=== PATIENT | female | born 1975 | race Hispanic/Latino ===

== ENCOUNTER 2019-12-03 06:01 | Observation (INO) | payer OTHER ==
[2019-11-29 13:16] LABS: Basophils # (Auto) 0.2 K/mm3 (0.0-0.1); Basophils % (Auto) 1.5 % (0.0-1.8); Eosinophils # (Auto) 0.2 K/mm3 (0.0-0.4); Eosinophils % (Auto) 1.3 % (0.0-4.3); Hemoglobin 13.1 gm/dl (10.1-14.3); Lymphocytes # (Auto) 3.1 K/mm3 (1.2-5.4); Lymphocytes % (Auto) 23.5 % (13.4-35.0); Mean Corpuscular HGB Conc 32 % (30-34); Mean Corpuscular Volume 83 fl (79-97); Monocytes # (Auto) 0.9 K/mm3 (0.0-0.8); Monocytes % (Auto) 6.6 % (0.0-7.3); Platelet Count 435 K/mm3 (140-440); Red Blood Count 4.93 M/mm3 (3.65-5.03); Red Cell Distribution Width 14.5 % (13.2-15.2)
--- NOTE | 2019-11-29 13:28 | Anesthesia Consultation ---
Anesthesia Consult and Med Hx Date of service: 12/03/19 - Airway Anesthetic Teeth Evaluation: Good ROM Head & Neck: Adequate (S/P ACDF-decreased lateral; good extension) Mental/Hyoid Distance: Adequate Mallampati Class: Class II Intubation Access Assessment: Good - Pre-Operative Health Status ASA Pre-Surgery Classification: ASA2 Proposed Anesthetic Plan: General Nerve Block: TAP - Pulmonary Hx Asthma: Yes (As a child) Hx Respiratory Symptoms: No (States she can climb two flights of stairs) - Cardiovascular System Hx Hypertension: No Hx Peripheral Vascular Disease: Yes (Diuretics because her legs swell) - Central Nervous System Hx Neuromuscular Disorder: Yes (Migraines) Hx Back Pain: Yes (Occas. Scoliosis. S/P LL) Hx Psychiatric Problems: No - Gastrointestinal Hx Gastroesophageal Reflux Disease: Yes (Occasional) - Endocrine Hx Hypothyroidism: Yes - Hematic Hx Anemia: Yes (Intermittant) - Other Systems Hx Cancer: No Hx Obesity: Yes - Additional Comments Anesthesia Medical History Comments: +Medical clearance
[2019-11-29 13:30] LABS: BUN/Creatinine Ratio 18; Blood Urea Nitrogen 14 mg/dL (7-17); Hemolysis Index 23
--- NOTE | 2019-12-02 17:38 | History and Physical Report ---
History of Present Illness Date of examination: 11/29/19 Chief complaint: Menorrhagia and pelvic pain History of present illness: Patient Profile: 44 Years Old Female LMP: 11/02/2019 Height: 69 inches (175.26 cm) Weight: 240 pounds BMI: 35.44 BP sittin / 72 (left arm) Menstrual History: LMP (date): 11/02/2019 Current Method of Contraception: None Date of Last Mammogram: 05/21/2019 Date of Last Pap Smear: 07/29/2019 Past History : 3 Term Births: 2 Premature Births: 0 Living Children: 2 Para: 2 Mult. Births: 0 Prev : 0 Aborta: 0 Elect. Ab: 0 Spont. Ab: 1 Ectopics: 0 # 1 Delivery date: 03/30/2007 Weeks Gestation: FT Delivery type: Infant Sex: Male weight: 7-5 Comments: lap ember during # 2 Delivery date: 12/2009 Weeks Gestation: ~6-7wks Delivery type: SAB Comments: no D&C # 3 Delivery date: 11/02/2010 Weeks Gestation: 38+5 Delivery type: Vaginal Anesthesia type: epidural Delivery location: [facility] Sex: male weight: 8.44 BUSINESS INTER[employer] History Uterine Surgery (not C/S): negative Operations: positive Cholecystectomy oral laminectomy lumbar 2000 cervical fusion (2013) Hospitalizations: negative Anesthesia Complications: negative Abnormal PAP: negative Uterine Anomaly: negative JENNIFER Exposure: negative Infertility: negative Infection History HIV Risk Eval: no Hep B Immunized: yes TB exposure: no Personal hx. of genital herpes: no Partner hx. of genital herpes: no Rash/viral illness since LMP: no Hx of STD: none Active Medications (reviewed today): TRICOR 145 MG ORAL TABLET (FENOFIBRATE) ARMOUR THYROID 90 MG ORAL TABLET (THYROID) LEVOTHYROXINE SODIUM 50 MCG ORAL TABLET (LEVOTHYROXINE SODIUM) Current Allergies (reviewed today): XYZAL (Critical) Past Medical History: Reviewed history from 08/19/2019 and no changes required: Hasimoto's thyroiditis Hyperlipidemia Past Surgical History: Reviewed history from 07/29/2019 and no changes required: positive Cholecystectomy oral laminectomy lumbar 2000 cervical fusion (2013) Family History Summary: Reviewed history Last on 07/29/2019 and no changes required:12/02/2019 MGM - Has Family History of Ovarian Cancer - MGGM - Entered On: 08/19/2019 Other Family Member - Has No Family History of Uterine Cancer - Entered On: 07/29/2019 Other Family Member - Has No Family History of Small Bowel Cancer - Entered On: 07/29/2019 Other Family Member - Has No Family History of Pancreatic Cancer - Entered On: 07/29/2019 Other Family Member - Has No Family History of Kidney/Urinary Tract Cancer - Entered On: 07/29/2019 Other Family Member - Has No Family History of Spontaneous DVT-PE - Entered On: 07/29/2019 Other Family Member - Has No Family History of Brain Cancer - Entered On: 07/29/2019 Other Family Member - Has No Family History of Biliary Tract Cancer - Entered On: 07/29/2019 MGM - Has Family History of Stomach Cancer - MGGM - Entered On: 07/29/2019 MGF - Has Family History of Stomach Cancer - Entered On: 07/29/2019 MGM - Has Family History of Skin Cancer - Entered On: 06/25/2015 MGF - Has Family History of Skin Cancer - Entered On: 06/25/2015 Mother - Has Family History of Skin Cancer - Entered On: 06/25/2015 Father - Has Family History of Skin Cancer - Entered On: 06/25/2015 Other Family Member - Has No Family History of Colon Cancer - Entered On: 06/25/2015 Aunt - Has Family History of Ovarian Cancer - paternal great aunt - Entered On: 06/25/2015 Cousin (female) - Has Family History Breast Cancer - age 39 - Entered On: 06/25/2015 General Comments - FH: Mother - heart surgery, arrhtymia ablation. also cad with stents MGF/MGGM stomach cancer No Family History of Colon Cancer Social History: Reviewed history from 07/29/2019 and no changes required: Patient is , no etoh, no illicit drug use, no tobacco use Occupation: RN Smoking History: Patient has never smoked. Risk Factors: Smoked Tobacco Use: Never smoker Smokeless Tobacco Use: Never Passive smoke exposure: no Drug use: no HIV high-risk behavior: no Alcohol use: yes Exercise: yes Seatbelt use: 100 % Mammogram History: Date of Last Mammogram: 05/21/2019 PAP Smear History: Date of Last PAP Smear: 07/29/2019 Previous Tobacco Use: Signed On - 08/19/2019 Smoked Tobacco Use: Never smoker Smokeless Tobacco Use: Never Counseled to quit/cut down: yes Passive smoke exposure: no Drug use: no HIV high-risk behavior: no Caffeine use: 1 drinks per day Previous Alcohol Use: Signed On - 08/19/2019 Alcohol use: yes Drinks per day: social Exercise: yes Times per week: 4 Type of Exercise: Walk Seatbelt use: 100 % Dietary Counseling: pn yes Mammogram History: Date of Last Mammogram: 05/21/2019 PAP Smear History: Date of Last PAP Smear: 07/29/2019 Physical Exam Appearance: well developed, well nourished, no acute distress Other Exams Lungs: no rales, rhonchi, or wheezes Heart: S1, S2, no murmur, rub, or gallop Genitourinary Exam Uterus: deffered for EUA Impression & Recommendations: Problem # 1: Excessive and frequent menstruation with irregular cycle (ICD- 626.6) ([id number]-G39.1) Diagnosis explained to patient . Discussed with patient various medical, surgical and radiological therapies common for treatment including, but not limited to, myomectomy, hysterectomy and uterine artery embolization. Discussed risks and benefits of laparotomy, laparoscopy, vaginal and robotic assisted approaches for hysterectomies. Patient desires definitive treatment in the form of robot assisted laparoscopic total hysterectomy. The risks and alternatives for this surgery were reviewed with the patient. She was informed of the risks of the surgery including, but not limited to, pain, infection, bleeding possibly heavy enough to require a blood transfusion with associated risks of infections (hepatitis and HIV) and transfusion reactions, possible damage to bowel, bladder or ureter(s). Patient understands that this surgery with make her sterile. Indications to abort a robotic/laparoscopic procedure and perform an open procedure were explained. Patient understands if her ovaries are removed she will become menopausal. She desires ovarina conservation. She was informed she may require surgery later to have her ovaries removed for a benign or mailgnant condition.Patient advised the small risks of spreading of maladiel yanet if morcellation is required during the surgery patient understands and approves performing if necessary. Questions answered. Consent reviewed and signed The patient was instructed/informed the following: The normal length of hospital stay for this procedure. Nothing to eat or drink after midnight the evening prior to surgery. Clear liquids the day before surgery. Pre-op instruction sheets given. Wound care instructions given. Problem # 2: Pelvic and perineal pain (ICD-789.00) (VGR44-T68.2) Risks, benefits, complications, consequences and alternatives for these procedures were discussed with patient, including but not limited to the risks of bleeding, infection, injury to bowel, bladder, ureters or major vascular injury. It was extensively explained to her that her pain may persist, recur or change in nature due to the difficulty with diagnosis chronic pelvic pain or development of adhesions. She declined other treatment options at this time. Questions were encouraged and answered. Consents were reviewed and signed. Pre- op as well as post-op instructions and precautions were given.. Patient voiced understanding and desires to proceed with the above procedures Medications Added to Medication List This Visit: 1) Tricor 145 Mg Oral Tablet (Fenofibrate) 2) [place] Thyroid 90 Mg Oral Tablet (Thyroid) 3) Levothyroxine Sodium 50 Mcg Oral Tablet (Levothyroxine sodium) Medications and Allergies Allergies Allergy/AdvReac Type Severity Reaction Status Date / Time levocetirizine [From Xyzal] Allergy Angioedema Verified 11/20/19 14:49 Home Medications Medication Instructions Recorded Confirmed Last Taken Type Fenofibrate Nanocrystallized 145 mg PO DAILY 11/20/19 11/20/19 Unknown History [Fenofibrate] Levothyroxine [Synthroid] 50 mcg PO QAM 11/20/19 11/20/19 Unknown History Thyroid,Pork [Thyroid] 90 mg PO DAILY 11/20/19 11/20/19 Unknown History Triamter/Hctz 75-50 mg (Nf) 1 tab PO QDAY PRN 11/20/19 11/20/19 Unknown History [Maxzide 75-50 mg] Vitamin D (Nf) 10,000 unit PO DAILY 11/20/19 11/20/19 Unknown History Active Meds: Active Medications Celecoxib (Celebrex) 200 mg PO PREOP NR Stop: 12/03/19 16:00 Fentanyl (Sublimaze) 100 mcg IV ONCE PRN PRN Reason: sedation for nerve block Stop: 12/03/19 16:00 Gabapentin (Gabapentin) 600 mg PO PREOP NR Stop: 12/03/19 16:00 Lactated Ringer's (Lactated Ringers) 1,000 mls @ 100 mls/hr IV DIRECT RAÚL Cefazolin Sodium (Ancef/Sterile Water 2 Gm/20 Ml) 2 gm in 20 mls @ 80 mls/hr IV PREOP NR; Protocol Magnesium Oxide (Mag-Ox) 400 mg PO PREOP RAÚL Midazolam HCl (Versed) 2 mg IV PREOP NR Stop: 12/03/19 16:00 Exam Vital Signs Temp Pulse Resp BP Pulse Ox 97.5 F L 92 H 20 150/70 98 11/29/19 13:09 11/29/19 13:09 11/29/19 13:09 11/29/19 13:09 11/29/19 13:09 Results - Labs 11/29/19 12:50 11/29/19 12:50 Assessment and Plan - Patient Problems (1) Menorrhagia Status: Acute Qualifiers: Menorrhagia type: with regular cycle Qualified Code(s): N92.0 - Excessive and frequent menstruation with regular cycle (2) Pelvic pain Status: Chronic
[~2019-12-03 06:01] MED LIST: CELECOXIB 200 MG CAP PO NR; GABAPENTIN 300 MG CAP PO NR; LACTATED RINGERS 1,000 ML IV SCH; MAGNESIUM OXIDE 400 MG TAB PO SCH; MIDAZOLAM 2 MG/2 ML INJ IV NR; ceFAZolin/Water 2 GM/20 ML 2 GM/20 ML SYRINGE IV NR; fentaNYL 100 MCG/2 ML INJ IV PRN
[2019-12-03] MEDS ORDERED: BACTERIOSTATIC SODIUM CHLORIDE 0.9% 30 ML VIAL INFILTRATI ONE (06:31)
[2019-12-03] MEDS ORDERED: MIDAZOLAM 2 MG/2 ML INJ ONE (07:11)
[2019-12-03] MEDS ORDERED: fentaNYL 100 MCG/2 ML INJ ONE (07:11)
[2019-12-03] MEDS ORDERED: ONDANSETRON 4 MG/2 ML INJ ONE (07:11)
[2019-12-03] MEDS ORDERED: ROCURONIUM 50 MG/5 ML INJ IV ONE (07:11)
[2019-12-03] MEDS ORDERED: dexAMETHasone 20 MG/5 ML VIAL ONE (07:11)
[2019-12-03] MEDS ORDERED: propofoL 200 MG/20 ML VIAL IV ONE (07:11)
[2019-12-03] MEDS ORDERED: METOCLOPRAMIDE 10 MG/2 ML INJ ONE (07:11)
[2019-12-03] MEDS ORDERED: LIDOCAINE MPF (2%) 20 MG/1 ML VIAL 5 ML ONE (07:11)
[2019-12-03] MEDS ORDERED: GLYCOPYRROLATE 0.4 MG/2 ML INJ ONE (07:12)
[2019-12-03] MEDS ORDERED: NEOSTIGMINE 10MG/10 ML INJ MDV ONE (07:12)
[2019-12-03] MEDS ORDERED: KETOROLAC 30 MG/1 ML INJ ONE (07:12)
[2019-12-03] MEDS ORDERED: BUPIVACAINE-EPINEPHRINE/PF 0.25%-1:200,000 (30 ML) VIAL INFILTRATI ONE (07:14)
[2019-12-03] MEDS ORDERED: dexAMETHasone 4 MG/ML VIAL ONE (07:14)
[2019-12-03] MEDS ORDERED: CITRIC ACID-SOD CITRATE 0 ML IV ONE (07:31)
[2019-12-03] MEDS ORDERED: CALCIUM CHLORIDE 1,000 MG/10 ML SYRINGE IV ONE ×2 (07:31→09:14)
[2019-12-03] MEDS ORDERED: THROMBIN (RECOMBINANT) 5,000 UNIT VIAL TP ONE ×2 (07:32→09:14)
[2019-12-03] MEDS ORDERED: NEOMY 40 MG/POLYMYXIN B 200,000 UNITS/ML (GU) AMPULE IR ONE ×2 (07:32→09:13)
[2019-12-03] MEDS ORDERED: PHENYLEPHRINE/NS 1,000 MCG/10 ML SYRINGE (OR USE) IV ONE (08:12)
[2019-12-03] MEDS ORDERED: HYDROmorphone 1 MG/1 ML INJ IV PRN (08:29)
--- NOTE | 2019-12-03 08:29 | Anesthesia Day of Surgery ---
Anesthesia Day of Surgery - Day of Surgery Patient Examined: Yes Patient H&P Reviewed: Yes Patient is NPO: Yes
[2019-12-03] MEDS ORDERED: LACTATED RINGERS 1,000 ML ONE ×2 (08:44→09:23)
[2019-12-03] MEDS ORDERED: SODIUM CHLORIDE 0.9% IRRIG SOLN 2000 ML IR ONE (09:13)
[2019-12-03] MEDS ORDERED: MORPHINE 4 MG/1 ML INJ IV PRN (11:33)
[2019-12-03] MEDS ORDERED: METOCLOPRAMIDE 10 MG/2 ML INJ IV PRN (11:33)
[2019-12-03] MEDS ORDERED: METOCLOPRAMIDE 10 MG TAB PO PRN (11:33)
[2019-12-03] MEDS ORDERED: MORPHINE 2 MG/1 ML INJ IV PRN (11:33)
[2019-12-03] MEDS ORDERED: NALOXONE 0.4 MG/1 ML INJ IV PRN (11:33)
--- NOTE | 2019-12-03 11:46 | Operative Report ---
Operative Report Operative Report: Date: 12/03/2019 Preoperative diagnosis: 1. Menorrhagia 2. Pelvic pain 3. Body mass index of [] kg/m 4. [] 5. [] 6. [ ] Postoperative diagnosis: 1. Menorrhagia 2. Pelvic pain 3. Body mass index of [] kg/m 4. Left ovarian cyst 5. Possible endometriosis Procedure: 1. Robotic-assisted laparoscopic total hysterectomy with bilateral salpingectomy 2. Left ovarian cystectomy 3. Ablation of endometriosis Surgeon: Ninoska Zepeda MD Business Banking Representative: Vijaya Lopez CST Anesthesiologist: Dr. Leblanc Anesthesia: General endotracheal anesthesia EBL: Approximately less than 50 mL Findings: EUA: Uterus difficult to palpate due to body habitus. Uterus was sounded to 8 cm. Grossly normal tubes and ovaries. Small implant of what appeared to be endometriosis at the right proximal uterosacral ligament Procedure: Patient was taken to the OR and placed in the supine position. General anesthesia was induced and an oral gastric tube was placed. Her neck and head were placed on foam support. Foam eye protection with goggles were secured in place. Then foam face protection was placed and secured. Foam shoulder pads were then positioned on her shoulders for Trendelenburg positioning. She was then placed in dorsolithotomy position. Exam under anesthesia as above. The abdomen and vagina were then prepped and draped in the usual sterile fashion. Timeout was performed. A Cleaning catheter was inserted into the bladder with drainage of clear yellow urine. The operative speculum was introduced into the vagina and the anterior lip of the cervix was grasped with single-toothed tenaculum. The uterus was sounded to 8 cm. The cervix was progressively dilated to allow the [] V care uterine manipulator. The bulb of the manipulator was inflated and the speculum and tenaculum were removed. The cup of the manipulator was placed around the cervix and the blue occluder of the manipulator was properly positioned in the vagina and secured. A laparotomy sponge that was saturated with a solution of polymyxin and saline was placed in the vagina to ensure pneumoperitoneum. Sterile gloves were placed and attention was turned to the abdomen. A 10 mm midline vertical supraumbilical incision was made approximately 10 cm superior to the elevated fundus of the uterus. A 10-12 mm trocar with the laparoscope and camera attached was introduced through this incision under direct visualization. The abdomen was insufflated. No obvious bowel, bladder, ureteral, or major vascular injury was noted. The patient was then placed in steep Trendelenburg position and the following trochars were placed under direct visualization: 8 mm robotic trochars were placed through incisions made in the bilateral midclavicular lower abdominal region approximately 10 cm lateral to the midline incision, and a 5 mm trocar was placed through an incision made in the right lower lateral pelvis. The 10 mm laparoscope was then replaced by a 5 mm laparoscope that was placed through the 5 millimeter lateral trocar. The 12 mm trocar was then removed and the Cirilo Mullen fascial closure device was placed through the incision and a 0 Vicryl was placed through the fascia. Once the suture was secured the 12 mm trocar was reintroduced. Once the trochars were in the appropriate positions, the da Shawn robot system was engaged. The EndoShears and bipolar device was placed through the 8 mm trochars and positioned then attention was turned to the console. The uterus was elevated and bilateral salpingectomy was performed. Each tube was removed through the 5 mm trocar and sent to pathology in separate containers. Once the posterior c ul-de-sac was visualized a small area of what appeared to be endometriosis was noted. Ablation was performed of this area. Then the utero-ovarian ligaments were clamped. cauterized and incised bilaterally using 30 W of energy. Then the round ligaments were clamped, cauterized and incised bilaterally. The anterior leaf of the broad ligament was elevated and with careful blunt and sharp dissection the bladder flap was created and dissected away from the lower uterine segment and cervix. The posterior leaf of the broad ligament was dissected away from the uterine vessels. The cup of the uterine manipulator was palpated both anteriorly and posteriorly. The bladder was further dissected away from the lower uterine segment. The uterine vessels were then clamped and cauterized bilaterally. Blanching of the uterus was then noted. Attention was again turned to the anterior lower uterine segment and the bladder was confirmed to be away from the operative field. Then attention was turned again to the posterior where the cup of the manipulator was palpated and a colpotomy was performed down to the cup. The incision was extended in the lateral position to the uterine vessels that were again clamped and cauterized and incised. Continuing along the cup of the manipulator in a circumferential manner the colpotomy was completed. The uterus and cervix were then removed through the vaginal incision. The pelvis was irrigated with warm normal saline. A moist laparotomy sponge was placed in the vagina to maintain pneumoperitoneum. The vagina cuff was reapproximated using V LOC 180 suture. Then a J stitch was performed to secure the suture. Again the pelvis was copiously irrigated with polymixin in warm normal saline. The laparotomy sponge was removed from the vagina. No obvious evidence of bowel, bladder, ureteral, or major vascular injury was noted. Once hemostasis was noted, platelet rich plasma was applied to the operative field to ensure hemostasis. Platelet poor plasma was applied to decrease formation of adhesions. Then the instruments were removed, the robot was disengaged. The 12 mm trocar was removed and the fascia was ligated with the 0 Vicryl suture that was placed at the beginning of the procedure. The patient was taken out of Trendelenburg position, the abdomen was desufflated, the remaining trochars were removed. Incisions were reapproximated using 4-0 Monocryl in a subcuticular manner. Surgiseal was placed over the other incisions. The vagina was then inspected, the cuff was palpated to be intact and no bleeding was noted and clear yellow urine was draining into the Cleaning bag from the bladder at the end of the procedure. Counts were correct 3. Patient was taken to recovery room in stable condition.
--- NOTE | 2019-12-03 12:12 | Post Anesthesia Evaluation ---
- Post Anesthesia Evaluation Patient Participated: Yes Airway Patent: Yes Stable Respiratory Function: Yes Nausea/Vomiting: No Temp > 96.8F: Yes Pain Manageable: Yes Adequeate Hydration: Yes Anesthesia Complications: No
[2019-12-03] MEDS: ACETAMINOPHEN 325 MG TAB PO SCH ×2 (13:17→21:25)
[2019-12-03] MEDS: ceFAZolin/NS 1 GM/50 ML 1 GM/50 ML BAG IV SCH ×2 (13:17→21:25)
[2019-12-03] MEDS: LACTATED RINGERS 1,000 ML IV SCH ×2 (13:18→21:30)
[2019-12-03] MEDS: PANTOPRAZOLE 40 MG INJ IV SCH (13:30)
[2019-12-03] MEDS: KETOROLAC 30 MG/1 ML INJ IV SCH (17:31)
--- NOTE | 2019-12-03 20:41 | Progress Note ---
Assessment and Plan Doing well, gonzales adjusted, UO clear, appropriate. No visitors present to assist with ambulation, Will remove gonzales in am. Patient voiced understanding and agrees w/ POC - Patient Problems (1) History of robot-assisted laparoscopic hysterectomy Current Visit: Yes Status: Acute (2) Menorrhagia Current Visit: No Status: Resolved Qualifiers: Menorrhagia type: with regular cycle Qualified Code(s): N92.0 - Excessive and frequent menstruation with regular cycle (3) Pelvic pain Current Visit: No Status: Resolved (4) Ovarian cyst Current Visit: Yes Status: Acute (5) Status post bilateral salpingectomy Current Visit: Yes Status: Acute Subjective - Subjective Date of service: 12/03/19 Principal diagnosis: DOS s/p RALTH, BS w/ (L) ov cyst removal Interval history: Patient Profile: 44 Years Old Female LMP: 11/02/2019 Height: 69 inches (175.26 cm) Weight: 240 pounds BMI: 35.44 BP sittin / 72 (left arm) Menstrual History: LMP (date): 11/02/2019 Current Method of Contraception: None Date of Last Mammogram: 05/21/2019 Date of Last Pap Smear: 07/29/2019 Past History : 3 Term Births: 2 Premature Births: 0 Living Children: 2 Para: 2 Mult. Births: 0 Prev : 0 Aborta: 0 Elect. Ab: 0 Spont. Ab: 1 Ectopics: 0 # 1 Delivery date: 03/30/2007 Weeks Gestation: FT Delivery type: Infant Sex: Male weight: 7-5 Comments: lap ember during # 2 Delivery date: 12/2009 Weeks Gestation: ~6-7wks Delivery type: SAB Comments: no D&C # 3 Delivery date: 11/02/2010 Weeks Gestation: 38+5 Delivery type: Vaginal Anesthesia type: epidural Delivery location: [facility] Infant Sex: male weight: 8.44 ORGANIC CHEMIST History Uterine Surgery (not C/S): negative Operations: positive Cholecystectomy oral laminectomy lumbar 2001 cervical fusion (2013) Hospitalizations: negative Anesthesia Complications: negative Abnormal PAP: negative Uterine Anomaly: negative JENNIFER Exposure: negative Infertility: negative Infection History HIV Risk Eval: no Hep B Immunized: yes TB exposure: no Personal hx. of genital herpes: no Partner hx. of genital herpes: no Rash/viral illness since LMP: no Hx of STD: none Active Medications (reviewed today): TRICOR 145 MG ORAL TABLET (FENOFIBRATE) ARMOUR THYROID 90 MG ORAL TABLET (THYROID) LEVOTHYROXINE SODIUM 50 MCG ORAL TABLET (LEVOTHYROXINE SODIUM) Current Allergies (reviewed today): XYZAL (Critical) Past Medical History: Reviewed history from 08/19/2019 and no changes required: Hasimoto's thyroiditis Hyperlipidemia Past Surgical History: Reviewed history from 07/29/2019 and no changes required: positive Cholecystectomy oral laminectomy lumbar 2001 cervical fusion (2013) Family History Summary: Reviewed history Last on 07/29/2019 and no changes required:12/02/2019 MGM - Has Family History of Ovarian Cancer - MGGM - Entered On: 08/19/2019 Other Family Member - Has No Family History of Uterine Cancer - Entered On: 07/29/2019 Other Family Member - Has No Family History of Small Bowel Cancer - Entered On: 07/29/2019 Other Family Member - Has No Family History of Pancreatic Cancer - Entered On: 07/29/2019 Other Family Member - Has No Family History of Kidney/Urinary Tract Cancer - Entered On: 07/29/2019 Other Family Member - Has No Family History of Spontaneous DVT-PE - Entered On: 07/29/2019 Other Family Member - Has No Family History of Brain Cancer - Entered On: 07/29/2019 Other Family Member - Has No Family History of Biliary Tract Cancer - Entered On: 07/29/2019 MGM - Has Family History of Stomach Cancer - MGGM - Entered On: 07/29/2019 MGF - Has Family History of Stomach Cancer - Entered On: 07/29/2019 MGM - Has Family History of Skin Cancer - Entered On: 06/25/2015 MGF - Has Family History of Skin Cancer - Entered On: 06/25/2015 Mother - Has Family History of Skin Cancer - Entered On: 06/25/2015 Father - Has Family History of Skin Cancer - Entered On: 06/25/2015 Other Family Member - Has No Family History of Colon Cancer - Entered On: 06/25/2015 Aunt - Has Family History of Ovarian Cancer - paternal great aunt - Entered On: 06/25/2015 Cousin (female) - Has Family History Breast Cancer - age 39 - Entered On: 06/25/2015 General Comments - FH: Mother - heart surgery, arrhtymia ablation. also cad with stents MGF/MGGM stomach cancer No Family History of Colon Cancer Social History: Reviewed history from 07/29/2019 and no changes required: Patient is , no etoh, no illicit drug use, no tobacco use Occupation: RN Smoking History: Patient has never smoked. Risk Factors: Smoked Tobacco Use: Never smoker Smokeless Tobacco Use: Never Passive smoke exposure: no Drug use: no HIV high-risk behavior: no Alcohol use: yes Exercise: yes Seatbelt use: 100 % Mammogram History: Date of Last Mammogram: 05/21/2019 PAP Smear History: Date of Last PAP Smear: 07/29/2019 Previous Tobacco Use: Signed On 08/19/2019 Smoked Tobacco Use: Never smoker Smokeless Tobacco Use: Never Counseled to quit/cut down: yes Passive smoke exposure: no Drug use: no HIV high-risk behavior: no Caffeine use: 1 drinks per day Previous Alcohol Use: Signed On 08/19/2019 Alcohol use: yes Drinks per day: social Exercise: yes Times per week: 4 Type of Exercise: Walk Seatbelt use: 100 % Dietary Counseling: pn yes Mammogram History: Date of Last Mammogram: 05/21/2019 PAP Smear History: Date of Last PAP Smear: 07/29/2019 Physical Exam Appearance: well developed, well nourished, no acute distress Other Exams Lungs: no rales, rhonchi, or wheezes Heart: S1, S2, no murmur, rub, or gallop Genitourinary Exam Uterus: deffered for EUA Impression & Recommendations: Problem # 1: Excessive and frequent menstruation with irregular cycle (ICD- 626.6) ([id number]-B50.1) Diagnosis explained to patient . Discussed with patient various medical, surgical and radiological therapies common for treatment including, but not limited to, myomectomy, hysterectomy and uterine artery embolization. Discussed risks and benefits of laparotomy, laparoscopy, vaginal and robotic assisted approaches for hysterectomies. Patient desires definitive treatment in the form of robot assisted laparoscopic total hysterectomy. The risks and alternatives for this surgery were reviewed with the patient. She was informed of the risks of the surgery including, but not limited to, pain, infection, bleeding possibly heavy enough to require a blood transfusion with associated risks of infections (hepatitis and HIV) and transfusion reactions, possible damage to bowel, bladder or ureter(s). Patient understands that this surgery with make her sterile. Indications to abort a robotic/laparoscopic procedure and perform an open procedure were explained. Patient understands if her ovaries are removed she will become menopausal. She desires ovarina conservation. She was informed she may require surgery later to have her ovaries removed for a benign or mailgnant condition.Patient advised the small risks of spreading of malignancy if morcellation is required during the surgery patient understands and approves performing if necessary. Questions answered. Consent reviewed and signed The patient was instructed/informed the following: The normal length of hospital stay for this procedure. Nothing to eat or drink after midnight the evening prior to surgery. Clear liquids the day before surgery. Pre-op instruction sheets given. Wound care instructions given. Problem # 2: Pelvic and perineal pain (ICD-789.00) ([id number]) Risks, benefits, complications, consequences and alternatives for these procedures were discussed with patient, including but not limited to the risks of bleeding, infection, injury to bowel, bladder, ureters or major vascular injury. It was extensively explained to her that her pain may persist, recur or change in nature due to the difficulty with diagnosis chronic pelvic pain or development of adhesions. She declined other treatment options at this time. Questions were encouraged and answered. Consents were reviewed and signed. Pre- op as well as post-op instructions and precautions were given.. Patient voiced understanding and desires to proceed with the above procedures Medications Added to Medication List This Visit: 1) Tricor 145 Mg Oral Tablet (Fenofibrate) 2) [place] Thyroid 90 Mg Oral Tablet (Thyroid) 3) Levothyroxine Sodium 50 Mcg Oral Tablet (Levothyroxine sodium) Patient reports: voiding normally (Requests to have gonzales removed b/c she thinks it's not draining well. ), pain well controlled Objective - Vital Signs Latest vital signs: Vital Signs Temp Pulse Resp BP BP Pulse Ox 12/03/19 19:30 98.7 F 64 18 109/55 12/03/19 16:42 97.3 F L 52 L 20 117/72 98 12/03/19 11:20 97.8 F 70 18 121/50 99 12/03/19 11:00 66 12 122/74 97 12/03/19 10:45 98 F 64 12 122/66 97 12/03/19 10:30 63 14 121/69 100 12/03/19 10:20 61 13 124/69 100 12/03/19 10:05 77 14 125/73 100 12/03/19 10:00 63 14 126/73 100 12/03/19 09:55 65 14 110/63 100 12/03/19 09:50 64 12 118/63 100 12/03/19 09:44 98.4 F 66 16 115/68 100 12/03/19 07:30 84 14 128/73 100 12/03/19 07:25 91 H 14 132/81 99 12/03/19 07:20 92 H 12 131/91 100 12/03/19 06:21 98.5 F 95 H 12 130/81 96 12/03/19 06:20 98.5 F 95 H 12 130/81 96 Intake and Output 12/03/19 12/03/19 12/03/19 06:59 14:59 22:59 Intake Total 820 540 Output Total 875 500 Balance -55 40 Intake: IV 700 Oral 120 240 Intake, Free Water 300 Output: Urine 875 500 Indwelling Catheter 575 500 Other: Total, Intake Amount 120 240 Total, Output Amount 575 500 Voiding Method Toilet Indwelling Catheter Indwelling Catheter
[2019-12-04] MEDS: KETOROLAC 30 MG/1 ML INJ IV SCH ×2 (00:01→07:23)
[2019-12-04 06:30] LABS: Hematocrit 30.9 % (30.3-42.9); Hemoglobin 10.2 gm/dl (10.1-14.3)
--- NOTE | 2019-12-04 09:10 | Discharge Summary ---
Providers - Providers Date of Admission: 12/03/19 09:57 Date of discharge: 12/04/19 Attending physician: LOC REDDY Primary care physician: KRISTEN VERDUZCO Hospitalization Condition: Good Procedures: RALTH/BS/ (L) ovarian cystectomy Hospital course: Normal Disposition: DC-01 TO HOME OR SELFCARE - Discharge Diagnoses (1) History of robot-assisted laparoscopic hysterectomy Status: Acute (2) Menorrhagia Status: Resolved Qualifiers: Menorrhagia type: with regular cycle Qualified Code(s): N92.0 - Excessive and frequent menstruation with regular cycle (3) Pelvic pain Status: Resolved (4) Ovarian cyst Status: Acute (5) Status post bilateral salpingectomy Status: Acute Core Measure Documentation - Palliative Care Palliative Care/ Comfort Measures: Not Applicable - Core Measures Any of the following diagnoses?: none Exam - Constitutional Vitals: Temp Pulse Resp BP Pulse Ox 98.6 F 73 16 119/72 98 12/04/19 04:00 12/04/19 04:00 12/04/19 04:00 12/04/19 04:00 12/03/19 16:42 General appearance: Present: no acute distress - Respiratory Respiratory effort: normal Respiratory: bilateral: CTA - Cardiovascular Rhythm: regular - Extremities Extremities: no ischemia, No edema - Abdominal General gastrointestinal: Present: soft, non-tender, non-distended, normal bowel sounds Female genitourinary: Present: deferred (Scant pink when she wiped) - Integumentary Integumentary: Present: clear, warm, dry (Incisions with intact, slight ecchymosis, as well as ecchymois at injection site for tap. No s/s infection) - Psychiatric Psychiatric: appropriate mood/affect, intact judgment & insight, memory intact, cooperative - Neurologic Neurologic: CNII-XII intact Plan Activity: other (Vicky sex, nodriving. Ambulate ~ 1mile on your property a day. Void and use your Incentive spirometer every hour while awake. ) Weight Bearing Status: Full Weight Bearing Diet: low fat (Eat small meals frequently, Drink ~100oz water a day. Avoid spicy foods), low salt Wound: open to air, keep clean and dry Special Instructions: no heavy lifting (Greater than 25lbs) Care Plan Goals: See instructions Plan of Treatment: See instruction Health Concerns: None Follow up with: KRISTEN VERDUZCO DO [Primary Care Provider] - 7 Days LOC REDDY MD [Staff Physician] - (As scheduled) Prescriptions: oxyCODONE /ACETAMINOPHEN [Percocet 5/325 mg] 1 - 2 tab PO Q6H PRN #14 tablet PRN Reason: Pain, Moderate (4-6)
[2019-12-04] MEDS: PANTOPRAZOLE 40 MG INJ IV SCH (09:48)
[2019-12-04] MEDS ORDERED: ACETAMINOPHEN 650 MG RECT SUPP PR PRN (09:57)
[2019-12-04] MEDS ORDERED: oxyCODONE /ACETAMINOPHEN 5-325MG TAB PO PRN (09:57)
[2019-12-04 12:11] VITALS: BP 107/53
== END 2019-12-04 12:50 | disposition home or self-care (01) ==
LOC: OR 06:01 → OB 09:57
PROVIDERS: ADMIT Obstetrics & Gynecology; ATTEND Obstetrics & Gynecology
DX: N92.0 Excessive and frequent menstruation with regular cycle (principal); N83.202 Unspecified ovarian cyst, left side; R10.2 Pelvic and perineal pain
CPT/HCPCS: 36415; 58563; 58571; 58662; 64450; 80048; 81025; 85014; 85018; 85025; 86850; 86900; 86901; 88305; 88307; 93005; 93010; 96365; 96366; 96375; 96376; A4217; C9113; G0378; J0690; J1100; J1170; J1885; J2250; J2370; J2405; J2704; J2710; J2765; J3010; J7120; S2900; 88302